=== PATIENT | male | born 1945 | race Caucasian/White ===

== ENCOUNTER → 2017-10-26 | Outpatient (CLI) | payer MEDICARE ==
[~2017-10-26] MED LIST: ENAL10TA PO; FLEC150T PO; FLUO40CA9 PO; METO25TA35 PO; REGADENOSON 0.4 MG/5 ML SYRINGE ONE; SIMV20TA PO; TAMS-11 PO; ZOLP10TA PO
== END | disposition home or self-care (01) ==
LOC: RAD 08:05
PROVIDERS: ATTEND Internal Medicine Cardiovascular Disease
DX: I48.91 Unspecified atrial fibrillation (principal)
CPT/HCPCS: 78452; 93017; A9502; J2785

== ENCOUNTER → 2019-09-04 | Outpatient (CLI) | payer MEDICARE ==
[~2019-09-04] MED LIST changes: -REGADENOSON 0.4 MG/5 ML SYRINGE ONE
== END | disposition home or self-care (01) ==
LOC: CVU 14:40
PROVIDERS: ATTEND Surgery
CPT/HCPCS: 93880; 93922

== ENCOUNTER → 2019-11-29 | Outpatient (CLI) | payer MEDICARE | END | disposition home or self-care (01) | LOC: CVU 10:03 | PROVIDERS: ATTEND Surgery | DX: I65.23 Occlusion and stenosis of bilateral carotid arteries (principal); I74.5 Embolism and thrombosis of iliac artery; I10 Essential (primary) hypertension; I73.9 Peripheral vascular disease, unspecified | CPT/HCPCS: 93922; 93925; 93978 ==

== ENCOUNTER 2020-04-04 08:25 | Day surgery (SDC) | payer MEDICARE ==
[2020-04-02 13:55] LABS: ALANINE AMINOTRANSFERASE 25 U/L (12-78); ALBUMIN 3.7 g/dL (3.4-5.0); ANION GAP 5 mmol/L (5-15); CALCIUM 9.2 mg/dL (8.5-10.1); CHLORIDE 103 mmol/L (98-107); CREATININE 0.93 mg/dL (0.7-1.3)
[2020-04-02 13:57] LABS: ALKALINE PHOSPHATASE 92 U/L (45-117); BILIRUBIN,TOTAL 0.6 mg/dL (0.2-1.0); TOTAL PROTEIN 7.1 g/dL (6.4-8.2)
[~2020-04-04] VITALS: Ht 180.3 cm; Wt 93.5 kg
[~2020-04-04 08:25] MED LIST changes: +AMLO5TAB4 PO; +ASPI-496 PO; +CEPH-375 PO; +CHOL10003 PO; +ENAL20TA PO; +ESCI20TA10 PO; +LEUP22.52 INJ; +LEVO125T63 PO; +MELO15TA24 PO; +MULT-449 PO; +calcium PO; +premarin cream TD
[2020-04-04] MEDS ORDERED: LACTATED RINGERS 1,000 ML IV SCH (09:20)
[2020-04-04 09:24] VITALS: BP 143/85
[2020-04-04] MEDS ORDERED: CHLORHEXIDINE 15 ML UDC ONE (09:30)
[2020-04-04] MEDS ORDERED: CHLORHEXIDINE 15 ML UDC MM ONE (09:30)
[2020-04-04] MEDS ORDERED: MIDAZOLAM 1 MG/ML, 2ML ONE (09:33)
[2020-04-04] MEDS ORDERED: FENTANYL PF 100 MCG/2ML ONE (09:33)
[2020-04-04] MEDS ORDERED: PROPOFOL 10 MG/ML, 20ML ONE (09:34)
[2020-04-04] MEDS ORDERED: CEFAZOLIN 1,000 MG ONE ×2 (09:34)
[2020-04-04] MEDS ORDERED: NEOSTIGMINE 1 MG/ML, 10ML ONE (10:40)
[2020-04-04] MEDS ORDERED: SUCCINYLCHOLINE 20 MG/ML, 10ML ONE (10:40)
[2020-04-04] MEDS ORDERED: ROCURONIUM 10 MG/ML,10ML ONE (10:40)
[2020-04-04] MEDS ORDERED: GLYCOPYRROLATE 0.2MG/1ML, 5ML ONE (10:40)
[2020-04-04] MEDS ORDERED: FENTANYL PF 100 MCG/2ML IV PRN (11:30)
[2020-04-04] MEDS ORDERED: LABETALOL 5MG/ML, 20ML IV PRN (11:30)
[2020-04-04] MEDS ORDERED: OXYcodone 5 MG/5 ML ORAL.SOL UDC PO PRN (11:30)
[2020-04-04] MEDS ORDERED: hydrALAzine 20 MG/ML, 1ML IV PRN (11:30)
[2020-04-04] MEDS ORDERED: ONDANSETRON 2MG/ML, 2ML IVPush PRN (11:30)
[2020-04-04] MEDS ORDERED: PROMETHAZINE 25 MG/ML, 1ML IVPush PRN (11:30)
[2020-04-04] MEDS ORDERED: MEPERIDINE/PF 25MG/0.5ML IVPush PRN (11:30)
[2020-04-04] MEDS ORDERED: ACETAMINOPHEN 325 MG TABLET PO PRN (11:30)
[2020-04-04] MEDS ORDERED: HYDROmorphone 1 MG/ML, 1ML INJ IVPush PRN (11:30)
[2020-04-04] MEDS ORDERED: BUPIVACAINE/PF 0.5% ONE (11:33)
[2020-04-04] MEDS ORDERED: LIDOCAINE 1%, 20ML ONE (11:34)
== END 2020-04-04 13:30 | disposition home or self-care (01) ==
LOC: OUT 08:25
PROVIDERS: ATTEND Orthopaedic Surgery
DX: M77.42 Metatarsalgia, left foot (principal); Z11.59 Encounter for screening for other viral diseases; S92.342A Displaced fracture of fourth metatarsal bone, left foot, initial encounter for closed fracture; M24.575 Contracture, left foot; I10 Essential (primary) hypertension; E11.9 Type 2 diabetes mellitus without complications; I48.91 Unspecified atrial fibrillation; E78.5 Hyperlipidemia, unspecified; Z79.02 Long term (current) use of antithrombotics/antiplatelets; Z79.1 Long term (current) use of non-steroidal anti-inflammatories (NSAID); Z79.899 Other long term (current) drug therapy; Z85.46 Personal history of malignant neoplasm of prostate; Z87.891 Personal history of nicotine dependence; Z88.8 Allergy status to other drugs, medicaments and biological substances; Z82.3 Family history of stroke; X58.XXXA Exposure to other specified factors, initial encounter; Y93.89 Activity, other specified; Y92.89 Other specified places as the place of occurrence of the external cause; Y99.8 Other external cause status
CPT/HCPCS: 28122; 28313; 36415; 80053; 87635; 93005; C1713; J0330; J0690; J2250; J2704; J2710; J3010; J7120

== ENCOUNTER 2020-04-22 08:48 | Outpatient (CLI) | payer MEDICARE ==
[~2020-04-22 08:48] MED LIST changes: +REGADENOSON 0.4 MG/5 ML SYRINGE ONE
== END 2020-04-22 23:59 | disposition home or self-care (01) ==
LOC: CFH 08:48
PROVIDERS: ATTEND Internal Medicine Cardiovascular Disease
DX: I48.91 Unspecified atrial fibrillation (principal); I10 Essential (primary) hypertension
CPT/HCPCS: 78452; 93017; A9502; J2785